=== PATIENT | female | born 1970 | race Caucasian/White ===

== ENCOUNTER 2020-03-10 09:17 | Emergency (ER) | payer SELFPAY ==
[2020-03-10] MEDS ORDERED: diphenhydrAMINE 50 MG/ML VIAL ONE (09:32)
[2020-03-10] MEDS ORDERED: diphenhydrAMINE 50 MG CAP ONE (09:32)
[2020-03-10] MEDS ORDERED: Dexamethasone 10 MG/ML VIAL ONE (09:32)
[2020-03-10] MEDS ORDERED: predniSONE 20 MG TAB ONE (10:15)
[2020-03-10] MEDS ORDERED: Famotidine 20 MG TAB ONE (10:15)
== END 2020-03-10 10:40 | disposition home or self-care (01) ==
LOC: ERS 09:17
DX: L50.0 Allergic urticaria (principal)
CPT/HCPCS: 96372; 99283; J1100; J1200; J7512